=== PATIENT | female | born 1950 ===

== ENCOUNTER 2018-09-09 20:22 | Emergency (ER) | payer OTHER ==
[~2018-09-09] VITALS: Ht 160 cm; Wt 72.6 kg
[2018-09-09] MEDS ORDERED: IV NORMAL SALINE 1000 ML BAG IV ONE (21:30)
[2018-09-09 21:56] LABS: BASOPHILS % (AUTO) 0.4 % (0.0-2.0); HEMATOCRIT 33.5 % (31.2-41.9); HEMOGLOBIN 11.2 g/dL (10.9-14.3); LYMPHOCYTES # (AUTO) 0.2 K/uL (20.0-40.0); LYMPHOCYTES % (AUTO) 2.8 % (20.5-51.5); MEAN CORPUSCULAR HEMOGLOBIN 30.4 uug (24.7-32.8); MEAN CORPUSCULAR HGB CONC 33 g/dL (32.3-35.6); MEAN CORPUSCULAR VOLUME 91.1 fL (75.5-95.3); MONOCYTES # (AUTO) 0.1 K/uL (2.0-10.0); MONOCYTES % (AUTO) 1.9 % (0.0-11.0); NEUTROPHILS % (AUTO) 94.9 % (38.5-71.5); PLATELET COUNT (AUTO) 271 K/uL (179-408); RED BLOOD CELL COUNT(AUTO) 3.68 MIL/uL (3.63-4.92); WHITE BLOOD COUNT (AUTO) 6.3 K/uL (3.8-11.8)
[2018-09-09 22:07] LABS: CREATININE 2.1 mg/dL (0.6-1.3); POTASSIUM 4.2 mmol/L (3.5-5.1)
--- NOTE | 2018-09-09 22:21 | NUR ---
NS INFUSION RATE ADJUSTED TO 30 ML/HR PER MD ORDERS.
[2018-09-09 22:23] LABS: BILIRUBIN,DIRECT 2.1 mg/dL (0.0-0.2); BILIRUBIN,TOTAL 2.4 mg/dL (0.2-1.0); TOTAL PROTEIN, SERUM 6.1 g/dL (6.4-8.2)
[2018-09-09] MEDS ORDERED: metoprolol PO (22:54)
[2018-09-09] MEDS ORDERED: ATOR40TA PO (22:54)
[2018-09-09] MEDS ORDERED: URSO500T9 PO ×2 (22:54)
[2018-09-09] MEDS ORDERED: CLOP75TA33 PO (22:54)
[2018-09-09] MEDS ORDERED: TACR1CAP PO (22:54)
[2018-09-09] MEDS ORDERED: PRED1TAB PO (22:54)
[2018-09-09] MEDS ORDERED: ONDANSETRON 4 MG/2 ML VIAL ONE (23:10)
--- NOTE | 2018-09-09 23:12 | NUR ---
[facility] CATH INSERTED - PT VOMITED X 2 DURING THE PROCEDURE. TOTAL EMESIS OUTPUT 50 ML. PT MEDICATED PER MD ORDER.
[2018-09-09] MEDS ORDERED: ONDANSETRON 4 MG/2 ML VIAL IV ONE (23:15)
--- NOTE | 2018-09-09 23:37 | NUR ---
ELVIS MCBRIDE ON PHONE W/ KEIRA MCBRIDE.
[2018-09-09 23:38] LABS: *BILIRUBIN,URIN 2+ (NEGATIVE); *BLOOD, URINE 2+ (NEGATIVE); *CLARITY,URINE TURBID (CLEAR); *COLOR,URINE YELLOW (YELLOW); *KETONES,URINE NEGATIVE (NEGATIVE); *PROTEIN,URINE 2+ (NEGATIVE); LEUKOCYTE ESTERASE ,URINE 3+ (NEGATIVE); NITRITE, URINE NEGATIVE (NEGATIVE); PH,URINE 5.5 (5.0-8.0); UGLUCOSE NEGATIVE (NEGATIVE)
[2018-09-09 23:42] LABS: BACTERIA,URINE MANY /HPF (NONE SEEN); SQUAMOUS EPITHELIAL CELL,UR FEW /HPF (NONE SEEN); WBC,URINE TNTC /HPF (0-3)
[2018-09-09] MEDS ORDERED: IV NS 1000 ML 1,000 ML IV ONE (23:45)
--- NOTE | 2018-09-10 00:22 | NUR ---
CALLED [facility]. CASE IS PENDING. AWAITING CALL BACK.
--- NOTE | 2018-09-10 02:00 | NUR ---
CALLED [facility] AND SPOKE W/ [facility]. WAS INFORMED PT'S ADMISSION STATUS IS STILL PENDING. AWAITING CALL-BACK W/ UPDATE.
--- NOTE | 2018-09-10 02:32 | NUR ---
CALLED [facility] RE ADMISSION STATUS. AWAITING CALL BACK.
--- NOTE | 2018-09-10 03:14 | NUR ---
SPOKE W/ DOC MIRANDA, FROM [facility]. [facility] WILL SEND TRANSPORT TEAM BY [phone] FOR RENTAL REPRESENTATIVE TO BE ADMITED TO [facility].
--- NOTE | 2018-09-10 03:42 | NUR ---
PT SLEEPING. VSS, REPOSITIONED Q2H.
--- NOTE | 2018-09-10 04:24 | NUR ---
Judson from [facility] called back to give transfer info. Patient will be going to [facility] [place] Room 7546. Accepting MD is Genevieve Bhagat Called for report # is . ETA of pick is [id number] via [facility] ambulance
--- NOTE | 2018-09-10 04:45 | NUR ---
GAVE TRANSFER REPORT TO DOC DOLAN AT [facility].
--- NOTE | 2018-09-10 05:47 | NUR ---
PT WILL BE TRANS TO [facility] BY [facility] [address] [facility].
== END 2018-09-10 06:12 | disposition short-term general hospital (02) ==
LOC: ER 20:25
DX: G93.40 Encephalopathy, unspecified (principal); E87.1 Hypo-osmolality and hyponatremia; T86.40 Unspecified complication of liver transplant; T86.12 Kidney transplant failure; N17.9 Acute kidney failure, unspecified; Z88.0 Allergy status to penicillin
CPT/HCPCS: 36415; 71045; 80048; 80076; 81001; 82533; 83605; 83880; 84443; 84484; 85025; 85730; 87040 ×2; 87086; 93005; 96361; 96374; 99285; J2405; 70030-TC; 87077; A4663; J7030